=== PATIENT | female | born 1970 | race Hispanic/Latino ===

== ENCOUNTER 2021-03-09 15:36 | Emergency (ER) | payer SELFPAY ==
[2021-03-09] MEDS ORDERED: METHYLPREDNISOLONE 125 MG INJ ONE (21:12)
[2021-03-09] MEDS ORDERED: DIPHENHYDRAMINE 50 MG/ML VIAL ONE (21:12)
[2021-03-09] MEDS ORDERED: FAMOTIDINE 20 MG TAB ONE (21:13)
--- NOTE | 2021-03-09 21:25 | ER ---
Nurse's Notes [facility] Name: Nani Ascencio Age: 51 yrs Sex: Female : 1970 Arrival Date: 03/09/2021 Time: 15:39 Bed 13 Private MD: Diagnosis: Rash and other nonspecific skin eruption;Acute tonsillitis, unspecified Presentation: 03/09 16:02 Chief complaint: Patient states: Rash with itching to body for 3 days. Reports fever ll1 and SOB at night. + N/V/D. No cough. Coronavirus screen: Vaccine status: Patient reports receiving the 2nd dose of the covid vaccine. Client denies travel out of the [place] in the last 14 days. chills, congestion, diarrhea, difficulty breathing, fatigue, fever, headache, muscle pain, nausea, vomiting. Client presents with at least one sign or symptom that may indicate coronavirus-19. Standard/surgical mask placed on the client. Ebola Screen: Patient denies travel to an Ebola-affected area in the 21 days before illness onset. Initial Sepsis Screen: Does the patient meet any 2 criteria? No. Patient's initial sepsis screen is negative. Does the patient have a suspected source of infection? Yes: Skin breakdown/wound. Risk Assessment: Do you want to hurt yourself or someone else? Patient reports no desire to harm self or others. Onset of symptoms was March 06, 2021. 16:02 Method Of Arrival: Ambulatory ll1 16:02 Acuity: MAGDA 3 ll1 Triage Assessment: 19:45 Respiratory: No deficits noted. Denies shortness of breath. dc2 19:45 Respiratory:. Respiratory: Denies shortness of breath. dc2 19:45 Respiratory: the patient reports symptoms have resolved. dc2 19:56 Respiratory: Reports no difficulty breathing or sob. dc2 21:00 General: Appears in no apparent distress. Behavior is calm, cooperative, Reports dc2 itching throughout body mainly trunk and back x last 3 days. Respiratory: Onset: The symptoms/episode began/occurred. 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 - Social history:: Smoking status: Patient reports the use of cigarette tobacco products, denies chronic smoking, but will smoke occasionally. - Family history:: not pertinent. Screenin:45 Abuse screen: Denies threats or abuse. Denies injuries from another. Nutritional dc2 screening: No deficits noted. Tuberculosis screening: No symptoms or risk factors identified. Never had TB. Fall Risk None identified. No fall in past 12 months (0 pts). Assessment: 19:45 General: Appears in no apparent distress. obese, well groomed, Behavior is calm, dc2 cooperative. Pain: Complains of pain in CO burning and itching throughout trunk and back from a red raised patchy rash. States has been going on for 4 months. Neuro: No deficits noted. Level of Consciousness is awake, alert, obeys commands, Oriented to person, place, time, situation. Cardiovascular: No deficits noted. Denies chest pain, shortness of breath, Heart tones present. Respiratory: Airway is patent Breath sounds are clear bilaterally. GI: No deficits noted. No signs and/or symptoms were reported involving the gastrointestinal system. Bowel sounds present X 4 quads. : No signs and/or symptoms were reported regarding the genitourinary system. Derm: Skin is intact, Skin is moist, Rash noted that is papular, red, raised, on throughout trunk and back. Musculoskeletal: No deficits noted. No signs and/or symptoms reported regarding the musculoskeletal system. Capillary refill < 3 seconds, is brisk, fingers. 19:45 Cardiovascular: Rhythm is regular. dc2 19:45 Respiratory: Respiratory effort is even, unlabored. dc2 Vital Signs: 16:02 BP 172 / 103; Pulse 80; Resp 18; Temp 98.3; Pulse Ox 98% ; Weight 75.75 kg; Height 5 ll1 ft. 5 in. (165.10 cm); Pain 9/10; 19:50 BP 191 / 87; Pulse 71; Resp 18; Temp 98.0; Pulse Ox 100% ; Pain 7/10; dc2 21:18 BP 175 / 96; Pulse 77; Resp 18; Temp 97.6(O); Pulse Ox 99% on R/A; Pain 0/10; dc2 16:02 Body Mass Index 27.79 (75.75 kg, 165.10 cm) ll1 ED Course: 15:39 Patient arrived in ED. mr 16:02 Arm band placed on. ll1 16:05 Triage completed. ll1 19:44 Addison Stevens MD is Attending Physician. ma2 19:45 Patient has correct armband on for positive identification. Bed in low position. Call dc2 light in reach. Side rails up X 1. Pulse ox on. NIBP on. Door closed. Lights dimmed. 19:45 No provider procedures requiring assistance completed. dc2 19:45 Patient did not have IV access during this emergency room visit. dc2 19:52 Alda Garcia, RN is Primary Nurse. dc2 21:15 No apparent distress. Awaiting disposition. dc2 21:21 ED physician to see patient. dc2 Administered Medications: 20:00 Drug: Benadryl (diphenhydrAMINE) 50 mg Route: IM; Site: left ventrogluteal; dc2 20:45 Follow up: Response: Marked relief of symptoms dc2 20:00 Drug: Pepcid (famotidine) 20 mg Route: PO; dc2 20:45 Follow up: Response: No adverse reaction dc2 20:01 Drug: MethylPREDNISolone Sodium Succinate 125 mg Route: IM; Site: right ventrogluteal; dc2 20:45 Follow up: Response: Marked relief of symptoms dc2 Outcome: 21:24 Discharge ordered by . ma2 21:26 Discharged to home ambulatory. dc2 21:26 Condition: stable 21:26 Discharge instructions given to patient, Instructed on discharge instructions, Demonstrated understanding of instructions, Prescriptions given X 4. 21:44 Patient left the ED. dc2 Signatures: Eula Crane mr Addison Stevens MD MD ma2 Tamara Garza, ETHAN RN 1 Alda Garcia, ETHAN RN dc2
--- NOTE | 2021-03-09 21:25 | EDPHYS ---
Physician Documentation [facility] Name: Nani Ascencio Age: 51 yrs Sex: Female : 1970 Arrival Date: 03/09/2021 Time: 15:39 Bed 13 Private MD: ED Physician Addison Stevens HPI: 03/09 21:23 This 51 yrs old Female presents to ER via Ambulatory with complaints of Rash, ma2 Fever, Breathing Difficulty. 21:23 The patient's rash thought to be caused by allergies. Onset: The symptoms/episode ma2 began/occurred gradually, 2 day(s) ago. Associated signs and symptoms: Pertinent negatives: difficulty breathing, nausea, swelling of throat, vomiting. Severity of symptoms: At their worst the symptoms were moderate in the emergency department the symptoms are unchanged. The patient has not experienced similar symptoms in the past. 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 - Social history:: Smoking status: Patient reports the use of cigarette tobacco products, denies chronic smoking, but will smoke occasionally. - Family history:: not pertinent. ROS: 21:23 Constitutional: Negative for fever, chills, and weight loss. ma2 21:23 All other systems are negative. Exam: 21:23 Constitutional: This is a well developed, well nourished patient who is awake, alert, ma2 and in no acute distress. Head/Face: Normocephalic, atraumatic. Eyes: Pupils equal round and reactive to light, extra-ocular motions intact. Lids and lashes normal. Conjunctiva and sclera are non-icteric and not injected. Cornea within normal limits. Periorbital areas with no swelling, redness, or edema. ENT: + tonsillitis, otherwise Nares patent. No nasal discharge, no septal abnormalities noted. Tympanic membranes are normal and external auditory canals are clear. Oropharynx with no redness, swelling, or masses, exudates, or evidence of obstruction, uvula midline. Mucous membranes moist. Neck: Trachea midline, no thyromegaly or masses palpated, and no cervical lymphadenopathy. Supple, full range of motion without nuchal rigidity, or vertebral point tenderness. No Meningismus. Chest/axilla: Normal chest wall appearance and motion. Nontender with no deformity. No lesions are appreciated. Cardiovascular: Regular rate and rhythm with a normal S1 and S2. No gallops, murmurs, or rubs. Normal PMI, no JVD. No pulse deficits. Respiratory: Lungs have equal breath sounds bilaterally, clear to auscultation and percussion. No rales, rhonchi or wheezes noted. No increased work of breathing, no retractions or nasal flaring. Abdomen/GI: Soft, non-tender, with normal bowel sounds. No distension or tympany. No guarding or rebound. No evidence of tenderness throughout. Back: No spinal tenderness. No costovertebral tenderness. Full range of motion. Skin: diffuse hives, otherwise Warm, dry with normal turgor. Normal color with no rashes, no lesions, and no evidence of cellulitis. MS/ Extremity: Pulses equal, no cyanosis. Neurovascular intact. Full, normal range of motion. Neuro: Awake and alert, GCS 15, oriented to person, place, time, and situation. Cranial nerves II-XII grossly intact. Motor strength 5/5 in all extremities. Sensory grossly intact. Cerebellar exam normal. Normal gait. Vital Signs: 16:02 BP 172 / 103; Pulse 80; Resp 18; Temp 98.3; Pulse Ox 98% ; Weight 75.75 kg; Height 5 ll1 ft. 5 in. (165.10 cm); Pain 9/10; 19:50 BP 191 / 87; Pulse 71; Resp 18; Temp 98.0; Pulse Ox 100% ; Pain 7/10; dc2 21:18 BP 175 / 96; Pulse 77; Resp 18; Temp 97.6(O); Pulse Ox 99% on R/A; Pain 0/10; dc2 16:02 Body Mass Index 27.79 (75.75 kg, 165.10 cm) ll1 MDM: 19:44 Patient medically screened. ma2 21:23 Differential diagnosis: impetigo, varicella, allergic reaction, parasite infection. ma2 Data reviewed: vital signs, nurses notes. Counseling: I had a detailed discussion with the patient and/or guardian regarding: the historical points, exam findings, and any diagnostic results supporting the discharge/admit diagnosis, the presence of at least one elevated blood pressure reading (>120/80) during this emergency department visit, the need for outpatient follow up. Response to treatment: the patient's symptoms have markedly improved after treatment. Administered Medications: 20:00 Drug: Benadryl (diphenhydrAMINE) 50 mg Route: IM; Site: left ventrogluteal; dc2 20:45 Follow up: Response: Marked relief of symptoms dc2 20:00 Drug: Pepcid (famotidine) 20 mg Route: PO; dc2 20:45 Follow up: Response: No adverse reaction dc2 20:01 Drug: MethylPREDNISolone Sodium Succinate 125 mg Route: IM; Site: right ventrogluteal; dc2 20:45 Follow up: Response: Marked relief of symptoms dc2 Disposition Summary: 03/09/21 21:24 Discharge Ordered Location: Home ma2 Condition: Stable ma2 Diagnosis - Rash and other nonspecific skin eruption ma2 - Acute tonsillitis, unspecified ma2 Followup: ma2 - With: Private Physician - When: Tomorrow - Reason: Continuance of care Discharge Instructions: - Discharge Summary Sheet ma2 - Upper Respiratory Infection, Adult ma2 - Rash, Adult, [id number] ma2 Forms: - Medication Reconciliation Form ma2 - Thank You Letter ma2 - Antibiotic Education ma2 - Prescription Opioid Use ma2 Prescriptions: - Benadryl 25 mg Oral Capsule - take 1 capsule by ORAL route every 6 hours As needed; 30 tablet; Refills: 0, ma2 Product Selection Permitted - Pepcid 20 mg Oral Tablet - take 1 tablet by ORAL route every 12 hours for 10 days; 20 tablet; Refills: 0, ma2 Product Selection Permitted - Zithromax Z-Ralph 250 mg Oral Tablet - take 1 tablet by ORAL route as directed for 5 days Day 1 - take two (2) tablets ma2 one time. Day 2, 3, 4 , 5 take one (1) tablet once daily.; 6 tablet; Refills: 0, Product Selection Permitted - Medrol (Ralph) 4 mg Oral Tablets, Dose Pack - take 1 tablet by ORAL route as directed - follow package instructions; 1 ma2 packet; Refills: 0, Product Selection Permitted Signatures: Addison Stevens MD MD ma2 Tamara Garza RN RN 1 Alda Garcia, RN RN dc2
[2021-03-09 22:51] VITALS: BP 175/96; TEMP 97.6; O2SAT 99
== END 2021-03-09 21:44 | disposition home or self-care (01) ==
LOC: ER 15:36
DX: J03.90 Acute tonsillitis, unspecified (principal); F17.210 Nicotine dependence, cigarettes, uncomplicated
CPT/HCPCS: 96372; 99283; J1200; J2930